=== PATIENT | male | born 1955 | race American Indian/Alaskan Native ===

== ENCOUNTER 2021-10-20 13:33 | Inpatient (IN) | payer MEDICARE ==
--- NOTE | 2021-10-20 14:05 | Emergency Department Report ---
HPI - General Chief Complaint: Urogenital-Male Time Seen by Provider: 10/20/21 13:55 - HPI HPI: Room 7 The patient is a 66-year-old male present with a chief complaint of urinary retention. The patient states she has had a hard time urinating for the last 6 days. Patient states he has suprapubic discomfort and his belly feels full has developed pain across his back. Patient states that he is only able to pass a small amount of urine. ED Past Medical Hx - Past Medical History Previous Medical History?: Yes Hx Hypertension: Yes Hx Diabetes: Yes - Surgical History Past Surgical History?: No Additional Surgical History: Neck surgery, low back surgery - Family History Family history: no significant - Social History Smoking Status: Former Smoker (None x1 year) Substance Use Type: None (Denies illicit drug use) - Medications Home Medications: Home Medications Medication Instructions Recorded Confirmed Last Taken Type No Known Home Medications [No 10/20/21 10/20/21 Unknown History Reported Home Medications] ED Review of Systems ROS: Stated complaint: not able to urinate x 1 week Other details as noted in HPI Constitutional: no symptoms reported Eyes: denies: eye pain ENT: denies: throat pain Respiratory: no symptoms reported Cardiovascular: denies: chest pain Endocrine: no symptoms reported Gastrointestinal: abdominal pain Genitourinary: other (Urinary retention) Musculoskeletal: back pain Neurological: denies: headache Physical Exam - Physical Exam Vital Signs: Vital Signs 10/20/21 13:34 Temperature 98.1 F Pulse Rate 66 Respiratory 16 Rate Blood Pressure 168/60 [Left] O2 Sat by Pulse 99 Oximetry Physical Exam: GENERAL: The patient is well-developed well-nourished male lying on stretcher not appearing to be in acute distress. [] HEENT: Normocephalic. Atraumatic. Extraocular motions are intact. Patient has moist mucous membranes. NECK: Supple. Trachea midline CHEST/LUNGS: Clear to auscultation. There is no respiratory distress noted. HEART/CARDIOVASCULAR: Regular. There is no tachycardia. There is no gallop rub or murmur. ABDOMEN: Abdomen is soft, with suprapubic fullness and tenderness. Patient has normal bowel sounds. There is no abdominal distention. SKIN: There is no rash. There is no edema. There is no diaphoresis. NEURO: The patient is awake, alert, and oriented. The patient is cooperative. The patient has no focal neurologic deficits. The patient has normal speech. GCS 15 MUSCULOSKELETAL: There is bilateral CVA tenderness. There is no evidence of acute injury. ED Course Vital Signs 10/20/21 13:34 Temperature 98.1 F Pulse Rate 66 Respiratory 16 Rate Blood Pressure 168/60 [Left] O2 Sat by Pulse 99 Oximetry ED Medical Decision Making - Lab Data Result diagrams: 10/20/21 14:18 10/20/21 14:18 Laboratory Tests 10/20/21 10/20/21 10/20/21 14:18 14:18 Unknown WBC 10.3 RBC 3.59 L Hgb 8.0 L Hct 25.6 L MCV 71 L MCH 22 L MCHC 31 L RDW 16.1 H Plt Count 225 Lymph % (Auto) 7.5 L Shelby % (Auto) 5.7 Eos % (Auto) 0.4 Baso % (Auto) 0.2 Lymph # (Auto) 0.8 L Shelby # (Auto) 0.6 Eos # (Auto) 0.0 Baso # (Auto) 0.0 Seg Neutrophils % 86.2 H Seg Neutrophils # 8.9 H Sodium 135 L Potassium 3.7 Chloride 93.7 L Carbon Dioxide 18 L Anion Gap 27 BUN 96 H Creatinine 12.4 H Estimated GFR 5 BUN/Creatinine Ratio 8 Glucose 163 H Calcium 8.5 Urine Bilirubin Neg Urine RBC (Auto) 35.0 U Epithel Cells (Auto) < 1.0 - Differential Diagnosis Urinary retention, UTI, pyelonephritis Critical care attestation.: If time is entered above; I have spent that time in minutes in the direct care of this critically ill patient, excluding procedure time. ED Disposition Clinical Impression: Obstructive uropathy, Acute renal failure, Uremia Disposition: ADMITTED INPATIENT Is pt being admited?: Yes Does the pt Need Aspirin: No Condition: Fair Time of Disposition: 15:36 (Hospitalist called (Dr. Acuna))
[2021-10-20 14:48] LABS: Basophils % (Auto) 0.2 % (0.0-1.8); Eosinophils % (Auto) 0.4 % (0.0-4.3); Hematocrit 25.6 % (35.5-45.6); Lymphocytes # (Auto) 0.8 K/mm3 (1.2-5.4); Lymphocytes % (Auto) 7.5 % (13.4-35.0); Mean Corpuscular HGB Conc 31 % (32-34); Mean Corpuscular Volume 71 fl (84-94); Monocytes # (Auto) 0.6 K/mm3 (0.0-0.8); Monocytes % (Auto) 5.7 % (0.0-7.3); Platelet Count 225 K/mm3 (140-440); Red Blood Count 3.59 M/mm3 (3.65-5.03); Red Cell Distribution Width 16.1 % (13.2-15.2)
[2021-10-20 15:03] LABS: Calcium 8.5 mg/dL (8.4-10.2)
[2021-10-20 15:13] LABS: Bacteria,Urine 1+ /HPF (Negative); Bilirubin,Urine NEG (Negative); Blood,Urine MOD (Negative); Color,Urine Yellow (Yellow); Protein,Urine <15 mg/dL mg/dL (Negative); Urobilinogen,Urine < 2.0 mg/dL (<2.0)
--- NOTE | 2021-10-20 16:05 | Cat Scan Report ---
CT ABDOMEN AND PELVIS WITHOUT CONTRAST HISTORY: urinary retention COMPARISON: None. TECHNIQUE: Axial CT images were obtained through the abdomen and pelvis without IV contrast. Sagittal and coronal reformatted images. All CT scans at this location are performed using CT dose reduction for ALARA by means of automated exposure control. FINDINGS: CT ABDOMEN: Lung Bases: Clear. Liver: No significant abnormality. Biliary: No significant abnormality. Spleen: No significant abnormality. Unenlarged. Pancreas: No significant abnormality. Adrenals: No significant abnormality. Kidneys: Punctate calyceal stone is identified at the inferior pole of the right kidney. There are 3 or 4 punctate stones scattered throughout the left kidney. No ureteral stones or hydronephrosis is id entified. No obvious cystic disease or mass on noncontrast CT. Lymphatics: No lymphadenopathy. Vasculature: No significant abnormality. Bowel/Peritoneum: No significant abnormality. No free air. No free fluid. Normal appendix. CT PELVIS: : The bladder is mostly decompressed and contains a Sauceda catheter. There appears to be a 3-[address] one in the posterior bladder. No obvious bladder abnormality. There is mild prostatomegaly. Osseous Structures: Stable appearance of the lumbar fusion. No acute osseous abnormality. Additional Findings: None IMPRESSION: Bilateral nonobstructing nephrolithiasis as described. Bladder stone. Signer Name: Guzman Dietz Jr, MD Signed: 10/20/2021 4:01 PM Workstation Name: [id number]
[2021-10-20] MEDS ORDERED: ACETAMINOPHEN 325 MG TAB PO PRN (16:55)
[2021-10-20] MEDS ORDERED: ONDANSETRON 4 MG/2 ML INJ IV PRN (16:55)
[2021-10-20] MEDS ORDERED: ALBUTEROL 2.5 MG/3 ML NEBU IH PRN (16:55)
--- NOTE | 2021-10-20 16:55 | History and Physical Report ---
History of Present Illness Chief complaint: It is hard to pee History of present illness: 66 YO Male with HTN, DM, OA presents ED for evaluation. Patient reports "it is hard for me to pee". Patient says he has experienced difficulty with urination over the past 1 week with persistent and worsening symptoms over the same timeframe. Patient also reports suprapubic discomfort and feeling "like my belly is full". Patient reports that he is only able to pass a small amount of urine. EMS was notified and upon arrival the patient was found to be in distress and subsequently transported to [facility] for further care and evaluation of the aforementioned symptoms. The patient was seen and evaluated in the emergency department. All lab and imaging studies reviewed. Patient found to have abdominal distention upon examination as well as a serum creatinine of 13. Patient underwent Sauceda catheter placement due to urinary retention due to obstructive uropathy. Patient had immediate return of 1300 cc of clear urine. Patient also found to have UTI, metabolic acidosis, hyponatremia, and volume depletion. Patient mated to medical floor due to increased risk of worsening symptoms. Patient denies fever, chills, chest pain, palpitation productive cough, skin rash, recent contact, known exposure to COVID-19. No prior admission for review. No medication listed at time of admission for reconciliation. Advanced. Care planning conducted in ED. Past History Past Medical History: arthritis, diabetes, hypertension Past Surgical History: No surgical history, Other (Reviewed) Social history: single Family history: diabetes, hypertension Medications and Allergies Allergies Allergy/AdvReac Type Severity Reaction Status Date / Time No Known Allergies Allergy Verified 10/20/21 17:06 Home Medications Medication Instructions Recorded Confirmed Last Taken Type No Known Home Medications [No 10/20/21 10/20/21 Unknown History Reported Home Medications] Review of Systems Constitutional: no weight loss, no weight gain, no fever, no chills Ears, nose, mouth and throat: no ear pain, no ear discharge, no tinnitis, no nose pain, no nasal congestion Cardiovascular: no chest pain, no palpitations, no edema, no lightheadedness Respiratory: no cough, no cough with sputum, no dyspnea on exertion Gastrointestinal: no nausea, no vomiting, no diarrhea, no constipation Genitourinary Male: urinary frequency, urinary hesitancy, urinary retention Rectal: no pain, no incontinence, no bleeding Musculoskeletal: no neck stiffness, no neck pain, no shooting arm pain, no arm numbness/tingling, no low back pain Integumentary: no rash, no sores, no wounds, no jaundice, no boils Neurological: no head injury, no paralysis, no weakness, no numbness Psychiatric: no anxiety, no change in sleep habits, no sleep disturbances, no insomnia, no hypersomnia, no disorientation Endocrine: no cold intolerance, no polyphagia, no polydipsia, no nocturia Hematologic/Lymphatic: no easy bruising, no lymphedema Allergic/Immunologic: no urticaria, no allergic rhinitis, no wheezing, no anaphylaxis, no angioedema Exam - Constitutional Vitals: Temp Pulse Resp BP Pulse Ox 98.8 F 74 20 115/84 99 10/20/21 16:44 10/20/21 16:44 10/20/21 16:44 10/20/21 16:44 10/20/21 16:44 General appearance: Present: mild distress - EENT Eyes: Present: PERRL ENT: hearing intact, clear oral mucosa - Neck Neck: Present: supple, normal ROM - Respiratory Respiratory effort: normal Respiratory: bilateral: CTA - Cardiovascular Heart Sounds: Present: S1 & S2. Absent: rub, click - Extremities Extremities: pulses symmetrical, No edema Peripheral Pulses: within normal limits - Abdominal General gastrointestinal: Present: soft, non-tender, non-distended, normal bowel sounds Male genitourinary: Present: normal - Integumentary Integumentary: Present: clear, warm, dry - Musculoskeletal Musculoskeletal: gait normal, strength equal bilaterally - Psychiatric Psychiatric: appropriate mood/affect, intact judgment & insight - Neurologic Neurologic: CNII-XII intact, moves all extremities Results - Labs CBC & Chem 7: 10/20/21 14:18 10/20/21 14:18 Labs: Abnormal lab results 10/20/21 10/20/21 10/20/21 Range/Units 14:18 14:18 Unknown RBC 3.59 L (3.65-5.03) M/mm3 Hgb 8.0 L (11.8-15.2) gm/dl Hct 25.6 L (35.5-45.6) % MCV 71 L (84-94) fl MCH 22 L (28-32) pg MCHC 31 L (32-34) % RDW 16.1 H (13.2-15.2) % Lymph % (Auto) 7.5 L (13.4-35.0) % Lymph # (Auto) 0.8 L (1.2-5.4) K/mm3 Seg Neutrophils % 86.2 H (40.0-70.0) % Seg Neutrophils # 8.9 H (1.8-7.7) K/mm3 Sodium 135 L (137-145) mmol/L Chloride 93.7 L (98-107) mmol/L Carbon Dioxide 18 L (22-30) mmol/L BUN 96 H (9-20) mg/dL Creatinine 12.4 H (0.8-1.3) mg/dL Glucose 163 H (75-100) mg/dL Urine WBC (Auto) 13.0 H (0.0-6.0) /HPF Assessment and Plan - Patient Problems (1) Obstructive uropathy Current Visit: Yes Status: Acute Plan to address problem: Sauceda catheter placement in the emergency department, PSA level, nephrology team consulted, supportive care. Outpatient urology follow-up. (2) Acute kidney injury (MARTA) with acute tubular necrosis (ATN) Current Visit: Yes Status: Acute Plan to address problem: BMP, IV fluid resuscitation therapy, monitor urine output every shift, daily weight, CT scan abdomen and pelvis. (3) Hypertension Current Visit: Yes Status: Acute Qualifiers: Hypertension type: unspecified Qualified Code(s): I10 - Essential (primary) hypertension Plan to address problem: Continue medical management, (4) Diabetes Current Visit: Yes Status: Acute Plan to address problem: Consistent carbohydrate diet, Accu-Chek, insulin protocol, hypoglycemia protocol. (5) Metabolic acidosis Current Visit: Yes Status: Acute Plan to address problem: IV fluid resuscitation therapy, BMP, repeat BMP in a.m. (6) Urinary tract infection Current Visit: Yes Status: Acute Qualifiers: Encounter type: initial encounter Plan to address problem: Empiric IV antibiotic therapy x1 dose, supportive care, (7) Hyponatremia Current Visit: Yes Status: Acute Plan to address problem: IV fluid resuscitation therapy, BMP, repeat BMP in a.m. (8) Volume depletion Current Visit: Yes Status: Acute Plan to address problem: IV fluid resuscitation therapy, monitor urine output every shift, supportive care. (9) DVT prophylaxis Current Visit: Yes Status: Acute Plan to address problem: SCD to bilateral lower extremities while in bed (10) Advance care planning Current Visit: Yes Status: Acute Plan to address problem: Disease education conducted, care plan discussed, diagnoses discussed, prognosis discussed, patient is full code. Patient knowledges understanding agreement with care plan, +30 minutes.
[2021-10-20] MEDS: oxyCODONE /ACETAMINOPHEN 5-325MG TAB PO PRN (17:53)
[2021-10-20] MEDS: HYDROmorphone 1 MG/1 ML INJ IV PRN (19:34)
[2021-10-20] MEDS: SODIUM CHLORIDE 0.9% 1000 ML 1,000 ML IV SCH (21:16)
[2021-10-20] MEDS: INSULIN LISPRO 100 UNIT/ML SUB-Q SCH (22:48)
[2021-10-21 05:38] LABS: Basophils % (Auto) 0.4 % (0.0-1.8); Eosinophils # (Auto) 0.1 K/mm3 (0.0-0.4); Eosinophils % (Auto) 1.6 % (0.0-4.3); Hematocrit 21.4 % (35.5-45.6); Hemoglobin 6.9 gm/dl (11.8-15.2); Lymphocytes # (Auto) 0.8 K/mm3 (1.2-5.4); Lymphocytes % (Auto) 9.7 % (13.4-35.0); Mean Corpuscular HGB Conc 32 % (32-34); Mean Corpuscular Volume 70 fl (84-94); Monocytes # (Auto) 0.5 K/mm3 (0.0-0.8); Platelet Count 194 K/mm3 (140-440); Red Blood Count 3.04 M/mm3 (3.65-5.03)
[2021-10-21] MEDS: INSULIN LISPRO 100 UNIT/ML SUB-Q SCH ×4 (07:52→23:24)
[2021-10-21 11:40] LABS: Alanine Aminotransferase 7 units/L (7-56); Albumin 3.4 g/dL (3.9-5); BUN/Creatinine Ratio 20; Blood Urea Nitrogen 22 mg/dL (9-20); Calcium 7.9 mg/dL (8.4-10.2); Hemolysis Index 0
[2021-10-21] MEDS ORDERED: PNEUMOCOCCAL 23 Valent 0.5 ML VIAL IM ONE (12:00)
[2021-10-21] MEDS: SODIUM CHLORIDE 0.9% 1000 ML 1,000 ML IV SCH (12:37)
--- NOTE | 2021-10-21 14:46 | Progress Note ---
Assessment and Plan #1 Obstructive uropathy patient has had significant success with catheter placement. Creatinine has gone from 13 down to 1. Unclear of exact etiology possibly secondary to renal stone that is since moved. We will keep catheter in and have patient follow-up outpatient with urology. #2 acute kidney injury-has resolved after placement of catheter. Most likely secondary to BPH. Will treat underlying urinary tract infection Leave Sauceda in and follow-up with urology Dr. Varela to 4 days. #3 hyponatremia-resolved. #4 hypertension-continues to have optimal control. Continue amlodipine 10 mg. #5 diabetes -continue sliding scale insulin coverage. Advance as tolerated. Subjective Date of service: 10/21/21 Principal diagnosis: Obstructive uropathy Interval history: Patient 66-year-old male with history of hypertension, diabetes osteoarthritis presents with evidence of obstructive uropathy greater than 24 hours. Patient had abdominal distention creatinine 12.5. Patient had catheter inserted and was able to obtain 1300 cc of clear urine. CT scan showed nonobstructive stone. Patient at present states he feels better. Wants to have catheter removed. No fever chills no nausea vomiting flank pain has resolved. Objective - Constitutional Vitals: Vital Signs - 12hr 10/21/21 10/21/21 10/21/21 03:52 09:00 09:58 Temperature 98.6 F Pulse Rate 73 Respiratory 24 Rate Blood Pressure 137/52 O2 Sat by Pulse 99 98 99 Oximetry General appearance: Present: no acute distress, well-nourished - EENT Eyes: PERRL, EOM intact ENT: hearing intact, clear oral mucosa Ears: bilateral: normal - Neck Neck: supple, normal ROM - Respiratory Respiratory effort: normal Respiratory: bilateral: CTA - Breasts Breasts: normal - Cardiovascular Rhythm: regular Heart Sounds: Present: S1 & S2. Absent: gallop, rub Extremities: pulses intact, No edema, normal color, Full ROM - Gastrointestinal General gastrointestinal: Present: soft, non-tender, non-distended, normal bowel sounds - Genitourinary Male genitourinary: normal - Integumentary Integumentary: clear, warm, dry - Musculoskeletal Musculoskeletal: 1, strength equal bilaterally - Neurologic Neurologic: moves all extremities - Psychiatric Psychiatric: memory intact, appropriate mood/affect, intact judgment & insight - Labs CBC & Chem 7: 10/21/21 04:49 10/21/21 10:57 Labs: Abnormal lab results 10/20/21 10/20/21 10/20/21 Range/Units 14:18 14:18 21:06 RBC 3.59 L (3.65-5.03) M/mm3 Hgb 8.0 L (11.8-15.2) gm/dl Hct 25.6 L (35.5-45.6) % MCV 71 L (84-94) fl MCH 22 L (28-32) pg MCHC 31 L (32-34) % RDW 16.1 H (13.2-15.2) % Lymph % (Auto) 7.5 L (13.4-35.0) % Lymph # (Auto) 0.8 L (1.2-5.4) K/mm3 Seg Neutrophils % 86.2 H (40.0-70.0) % Seg Neutrophils # 8.9 H (1.8-7.7) K/mm3 Sodium 135 L (137-145) mmol/L Chloride 93.7 L (98-107) mmol/L Carbon Dioxide 18 L (22-30) mmol/L BUN 96 H (9-20) mg/dL Creatinine 12.4 H (0.8-1.3) mg/dL Glucose 163 H (75-100) mg/dL POC Glucose 154 H (70-105) mg/dL Calcium (8.4-10.2) mg/dL Albumin (3.9-5) g/dL Urine WBC (Auto) (0.0-6.0) /HPF 10/20/21 10/21/21 10/21/21 Range/Units Unknown 04:49 07:21 RBC 3.04 L (3.65-5.03) M/mm3 Hgb 6.9 L (11.8-15.2) gm/dl Hct 21.4 L (35.5-45.6) % MCV 70 L (84-94) fl MCH 23 L (28-32) pg MCHC (32-34) % RDW 16.0 H (13.2-15.2) % Lymph % (Auto) 9.7 L (13.4-35.0) % Lymph # (Auto) 0.8 L (1.2-5.4) K/mm3 Seg Neutrophils % 81.3 H (40.0-70.0) % Seg Neutrophils # (1.8-7.7) K/mm3 Sodium (137-145) mmol/L Chloride (98-107) mmol/L Carbon Dioxide (22-30) mmol/L BUN (9-20) mg/dL Creatinine (0.8-1.3) mg/dL Glucose (75-100) mg/dL POC Glucose 128 H (70-105) mg/dL Calcium (8.4-10.2) mg/dL Albumin (3.9-5) g/dL Urine WBC (Auto) 13.0 H (0.0-6.0) /HPF 10/21/21 Range/Units 10:57 RBC (3.65-5.03) M/mm3 Hgb (11.8-15.2) gm/dl Hct (35.5-45.6) % MCV (84-94) fl MCH (28-32) pg MCHC (32-34) % RDW (13.2-15.2) % Lymph % (Auto) (13.4-35.0) % Lymph # (Auto) (1.2-5.4) K/mm3 Seg Neutrophils % (40.0-70.0) % Seg Neutrophils # (1.8-7.7) K/mm3 Sodium (137-145) mmol/L Chloride (98-107) mmol/L Carbon Dioxide (22-30) mmol/L BUN 22 H (9-20) mg/dL Creatinine (0.8-1.3) mg/dL Glucose 208 H (75-100) mg/dL POC Glucose (70-105) mg/dL Calcium 7.9 L (8.4-10.2) mg/dL Albumin 3.4 L (3.9-5) g/dL Urine WBC (Auto) (0.0-6.0) /HPF
[2021-10-22 06:38] LABS: BUN/Creatinine Ratio 14; Blood Urea Nitrogen 11 mg/dL (9-20); Calcium 7.9 mg/dL (8.4-10.2); Hemolysis Index 3
[2021-10-22] MEDS: INSULIN LISPRO 100 UNIT/ML SUB-Q SCH ×4 (08:03→21:14)
--- NOTE | 2021-10-22 12:51 | Progress Note ---
Assessment and Plan #1 Obstructive uropathy patient has had significant success with catheter placement. Creatinine has gone from 13 down to 1. Unclear of exact etiology possibly secondary to renal stone that is since moved. We will keep catheter in and have patient follow-up outpatient with urology. Patient does not want to remove catheter on his own. Will remove catheter to see if patient is able to urinate. If not we will have to place catheter back. If he urinates will discharge and follow-up with Dr. Varela 3 to 5 days. #2 acute kidney injury-has resolved after placement of catheter. Most likely secondary to BPH. Will treat underlying urinary tract infection Leave Sauceda in and follow-up with urology Dr. Varela to 4 days. #3 hyponatremia-resolved. #4 hypertension-continues to have optimal control. Continue amlodipine 10 mg. #5 diabetes -continue sliding scale insulin coverage. Advance as tolerated. Subjective Date of service: 10/22/21 Principal diagnosis: Obstructive uropathy Interval history: Patient 66-year-old male with history of hypertension, diabetes osteoarthritis presents with evidence of obstructive uropathy greater than 24 hours. Patient had abdominal distention creatinine 12.5. Patient had catheter inserted and was able to obtain 1300 cc of clear urine. CT scan showed nonobstructive stone. Patient at present states he feels better. Wants to have catheter removed. No fever chills no nausea vomiting flank pain has resolved. 10/22/2021 Patient does not want to go home with Sauceda catheter. Only if he has to. Demands to attempt to urinate on his own. No other symptoms. Objective - Constitutional Vitals: Vital Signs - 12hr 10/22/21 10/22/21 05:53 09:45 Temperature 98.5 F Pulse Rate 73 Respiratory 18 Rate Blood Pressure 99/48 O2 Sat by Pulse 99 98 Oximetry General appearance: Present: no acute distress, well-nourished - EENT Eyes: PERRL, EOM intact ENT: hearing intact, clear oral mucosa Ears: bilateral: normal - Neck Neck: supple, normal ROM - Respiratory Respiratory effort: normal Respiratory: bilateral: CTA - Breasts Breasts: normal - Cardiovascular Rhythm: regular Heart Sounds: Present: S1 & S2. Absent: gallop, rub Extremities: pulses intact, No edema, normal color, Full ROM - Gastrointestinal General gastrointestinal: Present: soft, non-tender, non-distended, normal bowel sounds - Genitourinary Male genitourinary: normal - Integumentary Integumentary: clear, warm, dry - Musculoskeletal Musculoskeletal: 1, strength equal bilaterally - Neurologic Neurologic: moves all extremities - Psychiatric Psychiatric: memory intact, appropriate mood/affect, intact judgment & insight - Labs CBC & Chem 7: 10/21/21 04:49 10/22/21 05:15 Labs: Abnormal lab results 10/21/21 10/21/21 10/21/21 Range/Units 11:59 16:51 21:37 Potassium (3.6-5.0) mmol/L Chloride (98-107) mmol/L Glucose (75-100) mg/dL POC Glucose 141 H 162 H 225 H (70-105) mg/dL Calcium (8.4-10.2) mg/dL 10/21/21 10/22/21 10/22/21 Range/Units 23:19 05:15 07:19 Potassium 3.4 L (3.6-5.0) mmol/L Chloride 109.9 H (98-107) mmol/L Glucose 123 H (75-100) mg/dL POC Glucose 208 H 134 H (70-105) mg/dL Calcium 7.9 L (8.4-10.2) mg/dL
[2021-10-22] MEDS: oxyCODONE /ACETAMINOPHEN 5-325MG TAB PO PRN (14:46)
[2021-10-22] MEDS: SODIUM CHLORIDE 0.9% 1000 ML 1,000 ML IV SCH (14:48)
[2021-10-22] MEDS: HYDROCORTISONE 2.5% RECT CREAM 28.35 GM PR PRN (18:34)
[2021-10-22] MEDS: HYDROmorphone 1 MG/1 ML INJ IV PRN (20:33)
[2021-10-23] MEDS: SODIUM CHLORIDE 0.9% 1000 ML 1,000 ML IV SCH (06:32)
[2021-10-23] MEDS: HYDROCORTISONE 2.5% RECT CREAM 28.35 GM PR PRN (06:32)
[2021-10-23] MEDS: oxyCODONE /ACETAMINOPHEN 5-325MG TAB PO PRN (06:33)
[2021-10-23] MEDS: INSULIN LISPRO 100 UNIT/ML SUB-Q SCH ×2 (08:30→11:55)
--- NOTE | 2021-10-23 09:29 | Discharge Summary ---
Providers - Providers Date of Admission: 10/20/21 16:55 Date of discharge: 10/23/21 Attending physician: THIERNO VUONG Primary care physician: [employer] Hospitalization Condition: Fair Hospital course: 66-year-old male presents with acute renal failure. Was found to be secondary to obstructive uropathy. Patient had Sauceda catheter placed and drained over 1300 cc of urine. Prior to discharge patient wanted to discontinue Sauceda and see if he was able to urinate. This failed catheter was replaced. Patient will be discharged with Sauceda and to follow-up with Dr. Varela office in 3 to 5 days. Patient will be given empiric antibiotics as well as Flomax. Disposition: HOME / SELF CARE / HOMELESS Final Discharge Diagnosis (Prints w/discharge instructions): Urinary obstruction acute renal failure - Discharge Diagnoses (1) Acute kidney injury (MARTA) with acute tubular necrosis (ATN) Status: Acute (2) Diabetes Status: Acute (3) Hypertension Status: Acute Qualifiers: Hypertension type: unspecified Qualified Code(s): I10 - Essential (primary) hypertension (4) Obstructive uropathy Status: Acute (5) Urinary tract infection Status: Acute Qualifiers: Encounter type: initial encounter Core Measure Documentation - Palliative Care Palliative Care/ Comfort Measures: Not Applicable - Core Measures Any of the following diagnoses?: none Exam - Constitutional Vitals: Temp Pulse Resp BP Pulse Ox 97.6 F 71 18 134/43 99 10/23/21 04:19 10/23/21 04:19 10/23/21 04:19 10/23/21 04:19 10/23/21 04:19 General appearance: Present: no acute distress, well-nourished - EENT Eyes: Present: PERRL ENT: hearing intact, clear oral mucosa - Neck Neck: Present: supple, normal ROM - Respiratory Respiratory effort: normal Respiratory: bilateral: CTA - Cardiovascular Heart Sounds: Present: S1 & S2. Absent: rub, click - Extremities Extremities: pulses symmetrical, No edema Peripheral Pulses: within normal limits - Abdominal General gastrointestinal: Present: soft, non-tender, non-distended, normal bowel sounds Male genitourinary: Present: normal - Integumentary Integumentary: Present: clear, warm, dry - Musculoskeletal Musculoskeletal: gait normal, strength equal bilaterally - Psychiatric Psychiatric: appropriate mood/affect, intact judgment & insight - Neurologic Neurologic: CNII-XII intact, moves all extremities Plan Activity: no restrictions Weight Bearing Status: Full Weight Bearing Diet: low carbohydrate Wound: other (Change Sauceda bag as directed per nurse.) Follow up with: PRIMARY CARE, [Primary Care Provider] - 7 Days SHELLIE VARELA MD [Staff Physician] - 7 Days Prescriptions: oxyCODONE /ACETAMINOPHEN [Percocet 5/325 mg] 1 tab PO Q6H PRN #7 tablet PRN Reason: Pain, Moderate (4-6) Hydrocortisone 2.5% [Proctosol-Hc] 1 applic SC BID PRN #1 tube PRN Reason: Rectal flare up
[2021-10-23 12:29] VITALS: BP 150/59
== END 2021-10-23 13:01 | disposition home or self-care (01) | DRG 698 ==
LOC: ED 13:33 → 3A 16:55
PROVIDERS: ADMIT Internal Medicine; ATTEND Internal Medicine
DX: N13.9 Obstructive and reflux uropathy, unspecified (principal); N17.0 Acute kidney failure with tubular necrosis; E87.1 Hypo-osmolality and hyponatremia; E87.2 Acidosis; N39.0 Urinary tract infection, site not specified; E86.9 Volume depletion, unspecified; E11.9 Type 2 diabetes mellitus without complications; I10 Essential (primary) hypertension; M19.90 Unspecified osteoarthritis, unspecified site; Z87.891 Personal history of nicotine dependence; Z83.3 Family history of diabetes mellitus; Z82.49 Family history of ischemic heart disease and other diseases of the circulatory system
CPT/HCPCS: 36415; 74150; 80048; 80053; 81001; 82962; 85025; 87086; 90732; G0378; Q0162; Q9967; J1170; J1815; J7030